=== PATIENT | female | born 1975 | race African-American/Black ===

== ENCOUNTER 2018-03-05 13:35 | Inpatient (IN) | payer OTHER ==
[2018-03-05 16:24] VITALS: BMI 23.3
--- NOTE | 2018-03-05 18:37 | HP ---
COWS - Scale Resting Pulse: 0= [place] 80 or Below Sweatin=Flushed/Facial Moisture Restless Observation: 3= Extraneous Movement Pupil Size: 2= Moderately Dilated (Pupils = 5 mm) Bone or Joint Aches: 2= Severe Diffuse Aches (achy all over) Runny Nose/ Eye Tearin= Constantly Teary/Runny GI Upset > 30mins: 1= Stomach Cramp Tremor Observation: 2= Slight Tremor Visible Yawning Observation: 0= None Anxiety or Irritability: 2=Irritable/Anxious Goose Flesh Skin: 0=Smooth Skin COWS Score: 18 CIWA Score - Admission Criteria [facility] Guidelines: Admission for Medically Managed Detox: Requires at least one of the followin. CIWA greater than 12 2. Seizures within the past 24 hours 3. Delirium tremens within the past 24 hours 4. Hallucinations within the past 24 hours 5. Acute intervention needed for co occurring medical disorder 6. Acute intervention needed for co occurring psychiatric disorder 7. Severe withdrawal that cannot be handled at a lower level of care (continued vomiting, continued diarrhea, abnormal vital signs) requiring intravenous medication and/or fluids 8. Admission ROS [facility] Chief Complaint: Here for opiate withdrawal. Allergies/Adverse Reactions: Allergies Allergy/AdvReac Type Severity Reaction Status Date / Time No Known Allergies Allergy Verified 03/05/18 16:49 History of Present Illness: States last medicated at [facility] on 02/20 with Suboxone. Last date of medication confirmed w/ Dr. Martel. at [facility] as 02/20 and received Suboxone 14 mg. Patient signed consent to speak w/ [facility]. He also verified that patient was seen At [facility] on 03/04. States was given methadone 10 mg for withdrawal in [facility] ER. Patient states has been using opiates, cocaine and marijuana States not using heroin. Denies hx blackouts, seizures, or overdose. Chronic LBP w/ hx herniated discs HIV (+) - last took meds 3 days ago. Hx: Genital Herpes - denies flare at this time. Hx bipolar, type 2. Denies thoughts of harming self or others. States getting meds from PCP. Search Terms: Aide Us, 1975 Search Date: 03/05/2018 06:34:19 PM Patient Name: Aide Us Date: 1975 Address: [address] [place] [id number] Sex: Female Rx Written Rx Dispensed Drug Quantity Days Supply Prescriber Name 02/11/2018 02/11/2018 dronabinol 5 mg capsule 60 30 Juventino Schaeffer Patient Name: Aide Us Date: 1975 Address: [address] [place] [address] Sex: Female Rx Written Rx Dispensed Drug Quantity Days Supply Prescriber Name 08/17/2017 08/17/2017 suboxone 8 mg-2 mg sl film 14 7 Kelvin, Wallace Jeff MD 08/10/2017 08/10/2017 suboxone 8 mg-2 mg sl film 14 7 Kelvin, Wallace Jeff MD Patient Name: Aide Us Date: 1975 Address: [address] [place] [address] Sex: Female Rx Written Rx Dispensed Drug Quantity Days Supply Prescriber Name 07/16/2017 08/03/2017 dronabinol 5 mg capsule 60 30 Kelvin, Wallace Jeff MD 08/03/2017 08/03/2017 suboxone 8 mg-2 mg sl film 14 7 Kelvin, Wallace Jeff MD 07/16/2017 07/16/2017 suboxone 8 mg-2 mg sl film 28 14 Kelvin, Wallace Jeff MD 07/02/2017 07/02/2017 suboxone 8 mg-2 mg sl film 28 14 Kelvin, Wallace Jeff MD 06/25/2017 06/25/2017 suboxone 8 mg-2 mg sl film 14 7 Kelvin, Wallace Jeff MD 05/26/2017 05/26/2017 suboxone 8 mg-2 mg sl film 60 30 Kelvin, Wallace Jeff MD 05/12/2017 05/12/2017 suboxone 8 mg-2 mg sl film 28 14 Kelvin, Wallace Jeff MD 04/28/2017 04/28/2017 suboxone 8 mg-2 mg sl film 28 14 Kelvin, Wallace Jeff MD 04/14/2017 04/17/2017 dronabinol 5 mg capsule 60 30 Kelvin, Wallace Jeff MD 04/14/2017 04/14/2017 suboxone 8 mg-2 mg sl film 28 14 Kelvin, Wallace Jeff MD 03/31/2017 03/31/2017 suboxone 8 mg-2 mg sl film 28 14 Wallace Warren MD 03/10/2017 03/10/2017 suboxone 8 mg-2 mg sl film 42 21 Wallace Warren MD Patient Name: Aide Us Date: 1975 Address: [address] [place] [address] Sex: Female Rx Written Rx Dispensed Drug Quantity Days Supply Prescriber Name 06/17/2017 06/27/2017 dronabinol 5 mg capsule 60 30 Wallace Warren MD Patient Name: Aide Us Date: 1975 Address: [address] [place] [address] Sex: Female Rx Written Rx Dispensed Drug Quantity Days Supply Prescriber Name 05/13/2017 05/15/2017 dronabinol 5 mg capsule 60 30 Jose Manuel Vallejo Exam Limitations: No Limitations - Ebola screening Have you traveled outside of the country in the last 21 days: No Have you had contact with anyone from an Ebola affected area: No Have you been sick,other than usual withdrawal symptoms: No Do you have a fever: No - Review of Systems Constitutional: Chills, Diaphoresis, Changes in sleep (r/y withdrawal) EENT: reports: Blurred Vision, Tearing, Nose Congestion (and unning), Dental Problems (Dentures. Chews and swallows ok.) Respiratory: reports: No Symptoms reported Cardiac: reports: Other (prolonged QT interval. Denies chest pain.) GI: reports: Diarrhea (bownish and very loose), Nausea, Abdominal cramping : reports: No Symptoms Reported Musculoskeletal: reports: Back Pain (Chronic LBP w/ hx herniated discs), Muscle Pain (Achy muscles r/t withdrawal) Integumentary: reports: No Symptoms Reported Neuro: reports: No Symptoms reported Endocrine: reports: No Symptoms Reported Hematology: reports: No Symptoms Reported Psychiatric: reports: Judgement Intact, Orientated x3 (Off date by 1 day.), Agitated, Anxious, Depressed (Hx bipolar, type 2. Denies thoughts of harming self or others.) Other Systems: Reviewed and Negative Patient History - Patient Medical History Hx Asthma: No Hx Cardiac Disorders: No Hx Hypertension: No Hx Seizures: No Hx Diabetes: No Hx Gastrointestinal Disorders: No Hx Genitourinary Disorders: No Hx Sexually Transmitted Disorders: No Hx Renal Disease (ESRD): No - Patient Surgical History Past Surgical History: No - PPD History Previous Implant?: Yes Documented Results: Negative w/o proof Implanted On Prior [facility] Admission?: No PPD to be Administered?: Yes - Reproductive History Patient is a Female of Child Bearing Age (11 -55 yrs old): Yes Patient : No - Smoking Cessation Smoking history: Current every day smoker Aproximately how many cigarettes per day: 10 Hx Chewing Tobacco Use: No Initiated information on smoking cessation: Yes 'Breaking Loose' booklet given: 03/05/18 - Substance & Tx. History Hx Alcohol Use: Yes Hx Substance Use: Yes Substance Use Type: Cocaine, Heroin, Marijuana Hx Substance Use Treatment: Yes (rehab, Suboxone program) - Substances Abused Heroin Route: SNIFF Frequency: Daily Amount used: 3 BAGS Age of first use: 24 Date of Last Use: 03/05/18 Cocaine Route: Smoking Frequency: Daily Amount used: $300 Age of first use: 24 Date of Last Use: 03/05/18 Marijuana/Hashish Route: Smoking Frequency: Daily Age of first use: 14 Date of Last Use: 03/04/18 Admission Physical Exam S - Vital Signs Vital Signs: Vital Signs - 24 hr 03/05/18 16:21 Temperature 97.1 F L Pulse Rate 59 L Respiratory 18 Rate Blood Pressure 128/76 - Physical General Appearance: Yes: Appropriately Dressed, Moderate Distress, Tremorous, Sweating, Anxious HEENTM: Yes: EOMI, Hearing grossly Normal, Normocephalic, ARACELI (Pupils = 5 mm), Rhinorrhea Respiratory: Yes: Lungs Clear, Normal Breath Sounds, No Respiratory Distress Neck: Yes: No masses,lesions,Nodules, Supple Breast: Yes: Breast Exam Deferred Cardiology: Yes: Regular Rhythm, Regular Rate, S1, S2 Abdominal: Yes: Non Tender, Flat, Soft, Increased Bowel Sounds Genitourinary: Yes: Within Normal Limits Back: Yes: Normal Inspection Musculoskeletal: Yes: full range of Motion, Gait Steady Extremities: Yes: Normal Capillary Refill, Normal Range of Motion, Non-Tender, Tremors (Mild tremors on arm elevation) 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 NML intact, Fully Oriented, Alert, Motor Strength 5/5, Normal Mood/Affect, Normal Response Integumentary: Yes: Normal Color, Dry, Warm Lymphatic: Yes: Within Normal Limits - Diagnostic (1) Opioid dependence with withdrawal Current Visit: Yes Status: Acute (2) HIV (human immunodeficiency virus infection) Current Visit: Yes Status: Chronic (3) Tinea pedis Current Visit: Yes Status: Chronic Qualifiers: Laterality: bilateral Qualified Code(s): B35.3 - Tinea pedis (4) Personal history of other diseases of the female genital tract Current Visit: No Status: Chronic Comment: Genital herpes (5) Nicotine dependence Current Visit: Yes Status: Chronic Qualifiers: Nicotine product type: cigarettes Substance use status: uncomplicated Qualified Code(s): F17.210 - Nicotine dependence, cigarettes, uncomplicated (6) Cocaine dependence Current Visit: Yes Status: Chronic Qualifiers: Substance use status: uncomplicated Qualified Code(s): F14.20 - Cocaine dependence, uncomplicated (7) Cannabis dependence, uncomplicated Current Visit: Yes Status: Chronic Cleared for Admission [facility] - Detox or Rehab [facility] Level of Care: Medically Managed Detox Regimen/Protocol: Methadone [facility] Breath Alcohol Content Breath Alcohol Content: 0 Urine Pregancy Test - Result Urine Test Results: Negative- NO Line Present Urine Drug Screen - Results Drug Screen Negative: No Urine Drug Screen Results: THC-Marijuana, VERO-Cocaine, MET-Methamphetamine, MTD- Methadone, BUP-Suboxone
[2018-03-05] MEDS ORDERED: MAG HYDROX/AL HYDROX/SIMETH 30 ML UNIT-DOSE CUP PO PRN (19:31)
[2018-03-05] MEDS ORDERED: MAGNESIUM CITRATE 300 ML BOTTLE PO PRN (19:31)
[2018-03-05] MEDS ORDERED: LOPERAMIDE HCL 2 MG CAPSULE PO PRN (19:31)
[2018-03-05] MEDS ORDERED: NICOTINE POLACRILEX 2 MG GUM BUC PRN (19:31)
[2018-03-05] MEDS ORDERED: MAGNESIUM HYDROX 2400MG/30ML ORAL SUSPENSION 30 ML CUP PO PRN (19:31)
[2018-03-05] MEDS ORDERED: MENTHOL/PHENOL 1 EACH UD MM PRN (19:31)
[2018-03-05] MEDS ORDERED: ACETAMINOPHEN 325 MG TABLET (FP) PO PRN (19:31)
[2018-03-05] MEDS ORDERED: METHADONE HCL 10 MG TABLET (FOR DETOX USE ONLY) PO ONE ×2 (19:45→23:00)
[2018-03-05] MEDS: diazePAM 5 MG TABLET PO PRN (20:29)
[2018-03-05] MEDS ORDERED: MELATONIN 5 MG TABLETS PO PRN (22:00)
[2018-03-05] MEDS: TOLNAFTATE 1% CREAM 15 GM TUBE TP SCH (22:16)
[2018-03-05] MEDS: THIAMINE HCL 100 MG TABLET (FP) PO SCH (22:16)
[2018-03-06 03:50] LABS: URINE APPEARANCE CLOUDY; URINE BILIRUBIN NEGATIVE (<2.0 mg/dL); URINE COLOR AMBER; URINE GLUCOSE (UA) NEGATIVE (NEGATIVE); URINE KETONE NEGATIVE (NEGATIVE); URINE LEUK ESTERASE NEGATIVE (NEGATIVE); URINE NITRITE NEGATIVE (NEGATIVE); URINE PROTEIN NEGATIVE (NEGATIVE); URINE UROBILINOGEN NEGATIVE mg/dL (0.2-1.0)
[2018-03-06] MEDS: IBUPROFEN 400 MG TABLET (FP) PO PRN (07:33)
[2018-03-06] MEDS ORDERED: METHADONE HCL 10 MG TABLET (FOR DETOX USE ONLY) PO ONE (10:00)
[2018-03-06] MEDS: NICOTINE 14 MG/24 HOURS TOPICAL PATCH TD SCH (10:45)
[2018-03-06] MEDS: diazePAM 5 MG TABLET PO PRN (10:45)
[2018-03-06] MEDS: PRENATAL VITAMINS W/ FOLIC ACID TABLET (FP) PO SCH (10:45)
[2018-03-06] MEDS: TOLNAFTATE 1% CREAM 15 GM TUBE TP SCH ×2 (10:46→22:19)
[2018-03-06 11:15] LABS: HEMATOCRIT 42.5 % (32.4-45.2); HEMOGLOBIN 13.6 GM/dL (10.7-15.3); MCH 28.9 pg (25.7-33.7); MCHC 32.1 g/dl (32.0-36.0); MEAN PLT VOLUME 8.7 fl (7.5-11.1); PLATELET COUNT 232 K/MM3 (134-434); RBC 4.72 M/mm3 (3.60-5.2); RDW 15.3 % (11.6-15.6); WHITE BLOOD COUNT 4.3 K/mm3 (4.0-10.0)
--- NOTE | 2018-03-06 11:30 | PN ---
S CIWA - CIWA Score Nausea/Vomitin-Mild Nausea/No Vomiting Muscle Tremors: 4-Moderate,w/Arms Extend Anxiety: 4-Mod. Anxious/Guarded Agitation: 4-Moderately Restless Paroxysmal Sweats: 1-Minimal Palms Moist Orientation: 0-Oriented Tacttile Disturbances: 0-None Auditory Disturbances: 0-None Visual Disturbances: 0-None Headache: 0-None Present CIWA-Ar Total Score: 14 S COWS - Scale Resting Pulse: 0= [place] 80 or Below Sweatin= Chills/Flushing Restless Observation: 3= Extraneous Movement Pupil Size: 0= Normal to Room Light Bone or Joint Aches: 1= Mild Discomfort Runny Nose/ Eye Tearin= None GI Upset > 30mins: 2= Nausea/Diarrhea Tremor Observation of Outstretched Hands: 2= Slight Tremor Visible Yawning Observation: 0= None Anxiety or Irritability: 2=Irritable/Anxious Goose Flesh Skin: 0=Smooth Skin COWS Score: 11 S Progress Note (SOAP) Subjective: ANXIETY,SWEATS/CHILLS,NAUSEA, NO VOMITING. Objective: VITAL SIGNS 03/06/18 03/06/18 03/06/18 03:30 06:24 10:00 Temperature 98.2 F 97.4 F L Pulse Rate 52 L 75 Respiratory 18 18 20 Rate Blood Pressure 125/84 100/70 Laboratory Tests 03/05/18 03/06/18 03/06/18 23:35 07:50 07:50 WBC 4.3 RBC 4.72 Hgb 13.6 Hct 42.5 MCV 90.0 MCH 28.9 MCHC 32.1 RDW 15.3 Plt Count 232 MPV 8.7 Sodium 143 Potassium 3.4 L Chloride 107 Carbon Dioxide 26 Anion Gap 11 BUN 13 Creatinine 1.0 Creat Clearance w eGFR > 60 Random Glucose 79 Calcium 8.4 L Total Bilirubin 0.3 AST 17 ALT 19 Alkaline Phosphatase 69 Total Protein 6.9 Albumin 3.2 L Urine Color Angy Urine Appearance Cloudy Urine pH 5.0 Ur Specific [place] 1.023 Urine Protein Negative Urine Glucose (UA) Negative Urine Ketones Negative Urine Blood Negative Urine Nitrite Negative Urine Bilirubin Negative Urine Urobilinogen Negative Ur Leukocyte Esterase Negative RPR Titer 03/06/18 07:50 WBC RBC Hgb Hct MCV MCH MCHC RDW Plt Count MPV Sodium Potassium Chloride Carbon Dioxide Anion Gap BUN Creatinine Creat Clearance w eGFR Random Glucose Calcium Total Bilirubin AST ALT Alkaline Phosphatase Total Protein Albumin Urine Color Urine Appearance Urine pH Ur Specific [place] Urine Protein Urine Glucose (UA) Urine Ketones Urine Blood Urine Nitrite Urine Bilirubin Urine Urobilinogen Ur Leukocyte Esterase RPR Titer Nonreactive Assessment: WITHDRAWAL SX BORDERLINE HYPOKALEMIA Plan: CONTINUE DETOX
[2018-03-06 12:16] LABS: ALBUMIN 3.2 g/dl (3.4-5.0); ALK PHOS 69 U/L (45-117); ANION GAP 11 MMOL/L (8-16); BILIRUBIN,TOTAL 0.3 mg/dL (0.2-1); BLOOD UREA NITROGEN 13 mg/dL (7-18); CALCIUM 8.4 mg/dL (8.5-10.1); CHLORIDE 107 mmol/L (98-107); CO2 26 mmol/L (21-32); GLUCOSE,RANDOM 79 mg/dL (74-106); POTASSIUM 3.4 mmol/L (3.5-5.1); SGOT/AST 17 U/L (15-37); SGPT/ALT 19 U/L (13-61); SODIUM 143 mmol/L (136-145); TOT PROT 6.9 g/dl (6.4-8.2)
[2018-03-06] MEDS: ONDANSETRON 4 MG TABLET PO PRN (14:45)
--- NOTE | 2018-03-06 21:15 | EKG ---
Test Reason : Blood Pressure : / mmHG Vent. Rate : 052 BPM Atrial Rate : 052 BPM P-R Int : 140 ms QRS Dur : 090 ms QT Int : 496 ms P-R-T Axes : 048 025 037 degrees QTc Int : 461 ms SINUS BRADYCARDIA MINIMAL VOLTAGE CRITERIA FOR LVH, MAY BE NORMAL VARIANT BORDERLINE ECG NO PREVIOUS ECGS AVAILABLE Confirmed by GALA CEDEÑO MD ([id number]) on 03/06/2018 9:15:00 PM Referred By: Confirmed By:GALA CEDEÑO MD
[2018-03-06] MEDS: THIAMINE HCL 100 MG TABLET (FP) PO SCH (22:19)
[2018-03-07] MEDS: IBUPROFEN 400 MG TABLET (FP) PO PRN ×2 (02:53→22:12)
[2018-03-07] MEDS: diazePAM 5 MG TABLET PO PRN ×2 (06:46→22:12)
[2018-03-07] MEDS ORDERED: METHADONE HCL 5 MG TABLET (FOR DETOX USE ONLY) PO ONE (10:00)
[2018-03-07] MEDS: PRENATAL VITAMINS W/ FOLIC ACID TABLET (FP) PO SCH (10:14)
[2018-03-07] MEDS: NICOTINE 14 MG/24 HOURS TOPICAL PATCH TD SCH (10:14)
[2018-03-07] MEDS: TOLNAFTATE 1% CREAM 15 GM TUBE TP SCH ×2 (10:16→22:11)
[2018-03-07] MEDS ORDERED: POTASSIUM CHLORIDE TABS 20 MEQ TABLET.ER (FP) PO ONE ×2 (11:00→18:02)
[2018-03-07] MEDS: PANTOPRAZOLE 40 MG TABLET (FP) PO SCH (11:18)
[2018-03-07] MEDS ORDERED: TRIMETHOBENZAMIDE HCL 200MG/2ML INJ IM PRN (13:23)
[2018-03-07] MEDS: ONDANSETRON 4 MG TABLET PO PRN (16:45)
--- NOTE | 2018-03-07 18:01 | PN ---
BHS COWS - Scale Resting Pulse: 0= [place] 80 or Below Sweatin= Chills/Flushing Restless Observation: 3= Extraneous Movement Pupil Size: 0= Normal to Room Light Bone or Joint Aches: 2= Severe Diffuse Aches Runny Nose/ Eye Tearin= Runny Nose/Eyes GI Upset > 30mins: 2= Nausea/Diarrhea Tremor Observation of Outstretched Hands: 2= Slight Tremor Visible Yawning Observation: 1= 1-2x During Session Anxiety or Irritability: 2=Irritable/Anxious Goose Flesh Skin: 0=Smooth Skin COWS Score: 15 BHS Progress Note (SOAP) Subjective: Stomach cramps, chills, nausea, interrupted sleep, restless legs Objective: 03/07/18 17:57 Last Vital Signs Temp Pulse Resp BP Pulse Ox 97.2 F L 62 18 98/63 03/07/18 14:52 03/07/18 14:52 03/07/18 14:52 03/07/18 14:52 Laboratory Tests 03/05/18 03/06/18 03/06/18 23:35 07:50 07:50 WBC 4.3 RBC 4.72 Hgb 13.6 Hct 42.5 MCV 90.0 MCH 28.9 MCHC 32.1 RDW 15.3 Plt Count 232 MPV 8.7 Sodium 143 Potassium 3.4 L Chloride 107 Carbon Dioxide 26 Anion Gap 11 BUN 13 Creatinine 1.0 Creat Clearance w eGFR > 60 Random Glucose 79 Calcium 8.4 L Total Bilirubin 0.3 AST 17 ALT 19 Alkaline Phosphatase 69 Total Protein 6.9 Albumin 3.2 L Urine Color Angy Urine Appearance Cloudy Urine pH 5.0 Ur Specific [place] 1.023 Urine Protein Negative Urine Glucose (UA) Negative Urine Ketones Negative Urine Blood Negative Urine Nitrite Negative Urine Bilirubin Negative Urine Urobilinogen Negative Ur Leukocyte Esterase Negative RPR Titer 03/06/18 07:50 WBC RBC Hgb Hct MCV MCH MCHC RDW Plt Count MPV Sodium Potassium Chloride Carbon Dioxide Anion Gap BUN Creatinine Creat Clearance w eGFR Random Glucose Calcium Total Bilirubin AST ALT Alkaline Phosphatase Total Protein Albumin Urine Color Urine Appearance Urine pH Ur Specific [place] Urine Protein Urine Glucose (UA) Urine Ketones Urine Blood Urine Nitrite Urine Bilirubin Urine Urobilinogen Ur Leukocyte Esterase RPR Titer Nonreactive Labs reviewed: [place] 3.4 Assessment: 03/07/18 17:58 Withdrawal symptoms Noted with hypotension and hypokalemia Plan: Continue detox Tigan 200mg IM prn for N/V Hypotension: asymptomatic, encouraged PO water hydration Hypokalemia: K Dur 40Meq PO x 2 doses, repeat K level in AM
[2018-03-07] MEDS: THIAMINE HCL 100 MG TABLET (FP) PO SCH (22:11)
[2018-03-08] MEDS: diazePAM 5 MG TABLET PO PRN ×2 (07:56→10:58)
[2018-03-08] MEDS ORDERED: METHADONE HCL 5 MG TABLET (FOR DETOX USE ONLY) PO ONE (10:00)
[2018-03-08] MEDS: TOLNAFTATE 1% CREAM 15 GM TUBE TP SCH ×2 (10:32→22:16)
[2018-03-08] MEDS: PRENATAL VITAMINS W/ FOLIC ACID TABLET (FP) PO SCH (10:32)
[2018-03-08] MEDS: PANTOPRAZOLE 40 MG TABLET (FP) PO SCH (10:32)
[2018-03-08] MEDS: NICOTINE 14 MG/24 HOURS TOPICAL PATCH TD SCH (10:32)
[2018-03-08] MEDS ORDERED: hydrOXYzine PAMOATE 50 MG CAPSULE (FP) PO ONE (13:15)
--- NOTE | 2018-03-08 14:04 | PN ---
BHS Progress Note (SOAP) Subjective: feeling better from opiate withdrawal but anxiousness no body aches no tremor Objective: 03/08/18 14:05 Vital Signs Temperature 96.7 F L 03/08/18 13:18 Pulse Rate 86 03/08/18 13:18 Respiratory Rate 18 03/08/18 13:18 Blood Pressure 99/70 03/08/18 13:18 O2 Sat by Pulse Oximetry (%) Laboratory Last Values WBC 4.3 K/mm3 (4.0-10.0) 03/06/18 07:50 RBC 4.72 M/mm3 (3.60-5.2) 03/06/18 07:50 Hgb 13.6 GM/dL (10.7-15.3) 03/06/18 07:50 Hct 42.5 % (32.4-45.2) 03/06/18 07:50 MCV 90.0 fl (80-96) 03/06/18 07:50 MCH 28.9 pg (25.7-33.7) 03/06/18 07:50 MCHC 32.1 g/dl (32.0-36.0) 03/06/18 07:50 RDW 15.3 % (11.6-15.6) 03/06/18 07:50 Plt Count 232 K/MM3 (134-434) 03/06/18 07:50 MPV 8.7 fl (7.5-11.1) 03/06/18 07:50 Sodium 143 mmol/L (136-145) 03/06/18 07:50 Potassium 4.2 mmol/L (3.5-5.1) 03/08/18 07:00 Chloride 107 mmol/L (98-107) 03/06/18 07:50 Carbon Dioxide 26 mmol/L (21-32) 03/06/18 07:50 Anion Gap 11 MMOL/L (8-16) 03/06/18 07:50 BUN 13 mg/dL (7-18) 03/06/18 07:50 Creatinine 1.0 mg/dL (0.55-1.3) 03/06/18 07:50 Creat Clearance w eGFR > 60 (>60) 03/06/18 07:50 Random Glucose 79 mg/dL (74-106) 03/06/18 07:50 Calcium 8.4 mg/dL (8.5-10.1) L 03/06/18 07:50 Total Bilirubin 0.3 mg/dL (0.2-1) 03/06/18 07:50 AST 17 U/L (15-37) 03/06/18 07:50 ALT 19 U/L (13-61) 03/06/18 07:50 Alkaline Phosphatase 69 U/L (45-117) 03/06/18 07:50 Total Protein 6.9 g/dl (6.4-8.2) 03/06/18 07:50 Albumin 3.2 g/dl (3.4-5.0) L 03/06/18 07:50 Urine Color Angy 03/05/18 23:35 Urine Appearance Cloudy 03/05/18 23:35 Urine pH 5.0 (5.0-8.0) 03/05/18 23:35 Ur Specific [place] 1.023 (1.010-1.035) 03/05/18 23:35 Urine Protein Negative (NEGATIVE) 03/05/18 23:35 Urine Glucose (UA) Negative (NEGATIVE) 03/05/18 23:35 Urine Ketones Negative (NEGATIVE) 03/05/18 23:35 Urine Blood Negative (NEGATIVE) 03/05/18 23:35 Urine Nitrite Negative (NEGATIVE) 03/05/18 23:35 Urine Bilirubin Negative (<2.0 mg/dL) 03/05/18 23:35 Urine Urobilinogen Negative mg/dL (0.2-1.0) 03/05/18 23:35 Ur Leukocyte Esterase Negative (NEGATIVE) 03/05/18 23:35 RPR Titer Nonreactive (NONREACTIVE) 03/06/18 07:50 lab noted Assessment: 03/08/18 14:05 mild withdrawal sx Plan: medically supervised detox
[2018-03-08] MEDS: ONDANSETRON 4 MG TABLET PO PRN (14:53)
[2018-03-08] MEDS ORDERED: ONDANSETRON *ODT* 4 MG TABLET SL PRN (15:43)
--- NOTE | 2018-03-08 18:40 | CONSULT ---
[facility] Psychiatric Consult - Data Date of interview: 03/08/18 Admission source: [facility] Identifying data: First admission to [facility] for this 42 y/o AA female seeking detoxification treatment on for opioid, cannabis and cocaine dependence. Patient is single, a mother of three, homeless (resides in [place]) , unemployed and supported on SSI benefits. Substance Abuse History: Confirmed by the patient. Details in current [facility] report : Smoking history: Current every day smoker. Aproximately how many cigarettes per day: 10. Hx Chewing Tobacco Use: No. Initiated information on smoking cessation: Yes. 'Breaking Loose' booklet given: 03/05/18. - Substance & Tx. History. Hx Alcohol Use: Yes. Hx Substance Use: Yes. Substance Use Type : Cocaine, Heroin, Marijuana. Hx Substance Use Treatment: Yes (rehab, Suboxone program). - Substances Abused. Heroin. Route: SNIFF. Frequency: Daily. Amount used: 3 BAGS. Age of first use: 24. Date of Last Use: 03/05/18. Cocaine. Route: Smoking. Frequency: Daily. Amount used: $300. Age of first use: 24. Date of Last Use: 03/05/18. Marijuana/Hashish. Route: Smoking. Frequency: Daily. Age of first use: 14. Date of Last Use: 03/04/18 Medical History: HIV infection since 197 (on ART medications) and chronic lumbar pain. Psychiatric History: Patient presents with a history of multiple psychiatric hospitalizations (institutions located in [facility]). Onset of psychiatric llness : age 12. Diagnosed with Bipolar Disorder. Ms Us reports management with seroquel 50 mg/hs. No contact with psychiatric OPD care providers since relocation to [facility] months ago. Relies on her primary care physician for refills until she connects with OPD Psychiatry. Dropped out of suboxone maintenance at [facility] in the [place]. Patient admits to a distant history of suicide attempt via overdose with psychotropic medications (eight years ago). Physical/Sexual Abuse/Trauma History: Not discussed. Patient declines. Additional Comment: Urine Drug Screen Results: THC-Marijuana, VERO-Cocaine, MET- Methamphetamine, MTD-Methadone, BUP-Suboxone. Noted. Mental Status Exam - Mental Status Exam Alert and Oriented to: Time, Place, Person Cognitive Function: Good Patient Appearance: Well Groomed Mood: Withdrawn, Apprehensive, Hopeful Affect: Appropriate, Normal Range Patient Behavior: Fatigued, Appropriate, Cooperative Speech Pattern: Clear, Appropriate Voice Loudness: Normal Thought Process: Goal Oriented Thought Disorder: Not Present Hallucinations: Denies Suicidal Ideation: Denies Homicidal Ideation: Denies Insight/Judgement: Poor Sleep: Poorly, Difficulty falling asleep Appetite: Good Muscle strength/Tone: Normal Gait/Station: Normal Psychiatric Findings - Problem List ([place] 1, 2,3) (1) Opioid dependence with withdrawal Current Visit: Yes Status: Acute (2) Cannabis dependence, uncomplicated Current Visit: Yes Status: Chronic (3) Cocaine dependence Current Visit: Yes Status: Chronic Qualifiers: Substance use status: uncomplicated Qualified Code(s): F14.20 - Cocaine dependence, uncomplicated (4) Nicotine dependence Current Visit: Yes Status: Chronic Qualifiers: Nicotine product type: cigarettes Substance use status: uncomplicated Qualified Code(s): F17.210 - Nicotine dependence, cigarettes, uncomplicated (5) Substance induced mood disorder Current Visit: Yes Status: Chronic (6) Bipolar II disorder Current Visit: No Status: Chronic Comment: Reported by the patient. No symptoms elicited in this examination. Non compliant with OPD care. (7) Insomnia Current Visit: Yes Status: Acute (8) Non-compliant patient Current Visit: Yes Status: Chronic - Initial Treatment Plan Initial Treatment Plan: Psychoeducation. Sleep hygiene. Detoxification. Seroquel 50 mg po hs. Side effects/benefits discussed with the patient. Conent ( verbal) granted to MD. Tripathi.
[2018-03-08] MEDS ORDERED: QUEtiapine FUMARATE 50 MG TABLET PO SCH (22:00)
[2018-03-08] MEDS: THIAMINE HCL 100 MG TABLET (FP) PO SCH (22:16)
[2018-03-09 06:29] VITALS: BP 116/81; PULSE 93; TEMP 98.6
[2018-03-09] MEDS: PRENATAL VITAMINS W/ FOLIC ACID TABLET (FP) PO SCH (09:02)
[2018-03-09] MEDS: PANTOPRAZOLE 40 MG TABLET (FP) PO SCH (09:02)
[2018-03-09] MEDS: NICOTINE 14 MG/24 HOURS TOPICAL PATCH TD SCH (09:03)
--- NOTE | 2018-03-09 09:31 | DS ---
[facility] Detox Discharge Summary Admission Date: 03/05/18 Discharge Date: 03/09/18 - History Present History: Opioid Dependence Additional Comments: 42 years old female admitted on 03/05/18 for opiate withdrawal stabilization completed opiate detox regimen tolerated well alert no acute distress aftercare infectious disease specialist provider Pertinent Past History: patient agrees to continue following up with ID for HIV and considers opiate medication assisted program - Physical Exam Results Vital Signs: Vital Signs Temperature 98.6 F 03/09/18 06:28 Pulse Rate 93 H 03/09/18 06:28 Respiratory Rate 18 03/09/18 06:28 Blood Pressure 116/81 03/09/18 06:28 O2 Sat by Pulse Oximetry (%) Pertinent Admission Physical Exam Findings: opiate withdrawal sx Laboratory Last Values WBC 4.3 K/mm3 (4.0-10.0) 03/06/18 07:50 RBC 4.72 M/mm3 (3.60-5.2) 03/06/18 07:50 Hgb 13.6 GM/dL (10.7-15.3) 03/06/18 07:50 Hct 42.5 % (32.4-45.2) 03/06/18 07:50 MCV 90.0 fl (80-96) 03/06/18 07:50 MCH 28.9 pg (25.7-33.7) 03/06/18 07:50 MCHC 32.1 g/dl (32.0-36.0) 03/06/18 07:50 RDW 15.3 % (11.6-15.6) 03/06/18 07:50 Plt Count 232 K/MM3 (134-434) 03/06/18 07:50 MPV 8.7 fl (7.5-11.1) 03/06/18 07:50 Sodium 143 mmol/L (136-145) 03/06/18 07:50 Potassium 4.2 mmol/L (3.5-5.1) 03/08/18 07:00 Chloride 107 mmol/L (98-107) 03/06/18 07:50 Carbon Dioxide 26 mmol/L (21-32) 03/06/18 07:50 Anion Gap 11 MMOL/L (8-16) 03/06/18 07:50 BUN 13 mg/dL (7-18) 03/06/18 07:50 Creatinine 1.0 mg/dL (0.55-1.3) 03/06/18 07:50 Creat Clearance w eGFR > 60 (>60) 03/06/18 07:50 Random Glucose 79 mg/dL (74-106) 03/06/18 07:50 Calcium 8.4 mg/dL (8.5-10.1) L 03/06/18 07:50 Total Bilirubin 0.3 mg/dL (0.2-1) 03/06/18 07:50 AST 17 U/L (15-37) 03/06/18 07:50 ALT 19 U/L (13-61) 03/06/18 07:50 Alkaline Phosphatase 69 U/L (45-117) 03/06/18 07:50 Total Protein 6.9 g/dl (6.4-8.2) 03/06/18 07:50 Albumin 3.2 g/dl (3.4-5.0) L 03/06/18 07:50 Urine Color Angy 03/05/18 23:35 Urine Appearance Cloudy 03/05/18 23:35 Urine pH 5.0 (5.0-8.0) 03/05/18 23:35 Ur Specific [place] 1.023 (1.010-1.035) 03/05/18 23:35 Urine Protein Negative (NEGATIVE) 03/05/18 23:35 Urine Glucose (UA) Negative (NEGATIVE) 03/05/18 23:35 Urine Ketones Negative (NEGATIVE) 03/05/18 23:35 Urine Blood Negative (NEGATIVE) 03/05/18 23:35 Urine Nitrite Negative (NEGATIVE) 03/05/18 23:35 Urine Bilirubin Negative (<2.0 mg/dL) 03/05/18 23:35 Urine Urobilinogen Negative mg/dL (0.2-1.0) 03/05/18 23:35 Ur Leukocyte Esterase Negative (NEGATIVE) 03/05/18 23:35 RPR Titer Nonreactive (NONREACTIVE) 03/06/18 07:50 lab noted - Treatment Hospital Course: Detox Protocol Followed, Detoxed Safely, Responded well, Discharged Condition Good, Rehab Referral Accepted Patient has Accepted a Rehab Referral to: HIV infectious disease specialist - Medication Discharge Medications: Ambulatory Orders Buprenorphine HCl/Naloxone HCl [Suboxone 8 mg-2 mg Sl Tablets] 16 mg SL DAILY Emtricitabine/Tenofovir [Truvada -] 1 tab PO DAILY 03/05/18 Raltegravir [Isentress] 800 mg PO DAILY 03/05/18 Quetiapine Fumarate [Seroquel] 150 tab PO HS 03/08/18 - Diagnosis (1) GERD (gastroesophageal reflux disease) Status: Chronic Qualifiers: Esophagitis presence: without esophagitis Qualified Code(s): K21.9 - Gastro -esophageal reflux disease without esophagitis (2) Opioid dependence with withdrawal Status: Acute (3) HIV (human immunodeficiency virus infection) Status: Chronic (4) Nicotine dependence Status: Acute Qualifiers: Nicotine product type: cigarettes Substance use status: in withdrawal Qualified Code(s): F17.213 - Nicotine dependence, cigarettes, with withdrawal (5) Substance induced mood disorder Status: Suspected - AMA Did Patient Leave Against Medical Advice: No
[2018-03-09] MEDS ORDERED: METHADONE HCL 10 MG TABLET (FOR DETOX USE ONLY) PO ONE (10:00)
[2018-03-10] MEDS ORDERED: METHADONE HCL 5 MG TABLET (FOR DETOX USE ONLY) PO ONE (06:00)
== END 2018-03-09 09:05 | disposition home or self-care (01) | DRG 773 ==
LOC: YASAS 13:35 → Y3N 19:24
PROC: HZ2ZZZZ Detoxification Services for Substance Abuse Treatment (ICD-10-PCS; principal; 2018-03-05)
DX: F11.23 Opioid dependence with withdrawal (principal); F14.20 Cocaine dependence, uncomplicated; F12.20 Cannabis dependence, uncomplicated; F17.213 Nicotine dependence, cigarettes, with withdrawal; F31.81 Bipolar II disorder; F19.24 Other psychoactive substance dependence with psychoactive substance-induced mood disorder; Z21 Asymptomatic human immunodeficiency virus [HIV] infection status; E87.6 Hypokalemia; G47.00 Insomnia, unspecified; K21.9 Gastro-esophageal reflux disease without esophagitis; M54.5 Low back pain; G89.29 Other chronic pain; B35.3 Tinea pedis; Z87.42 Personal history of other diseases of the female genital tract; Z91.19 Patient's noncompliance with other medical treatment and regimen
CPT/HCPCS: 36415; 80053; 81003; 84132; 85027; 86593; 93005; 93010; Q0162